=== PATIENT | female | born 1985 | race Caucasian/White ===

== ENCOUNTER → 2016-07-03 | Outpatient (CLI) | payer OTHER | LOC: FIMAGING 14:09 | PROVIDERS: ATTEND Obstetrics & Gynecology | DX: O99.281 Endocrine, nutritional and metabolic diseases complicating pregnancy, first trimester (principal); Z3A.12 12 weeks gestation of pregnancy ==

== ENCOUNTER → 2016-08-17 | Outpatient (CLI) | payer OTHER | LOC: FIMAGING 12:04 | PROVIDERS: ATTEND Obstetrics & Gynecology | DX: Z36 Encounter for antenatal screening of mother (principal); Z3A.19 19 weeks gestation of pregnancy ==

== ENCOUNTER 2016-12-26 10:16 | Inpatient (IN) | payer OTHER ==
--- NOTE | 2016-12-26 15:04 | GHP ---
[f rep st] HISTORY AND PHYSICAL DATE OF ADMISSION: 12/26/2016 ADMISSION DIAGNOSES: 1. IUP @ 38 weeks and 1/7 days. 2. Premature rupture of membranes. HISTORY OF PRESENT ILLNESS: Patient is a 31-year-old, 1, para 0, at 38 weeks and 1 day with estimated due date 01/09/2017. This is by a last menstrual period 04/04/2016, and confirmed by first-trimester ultrasound. Patient presents with complaints of positive leakage of fluid at 9 o'clock this morning. She notes it is clear, cloudy but no odor. No blood. States good movement. Denies any cramping or contractions at this time. Patient was a transfer of care to [facility] at 35 weeks from [facility]. 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 Patient did have a first trimester screen which was negative. On the ultrasound done at 20 weeks there was an estimated weight in 91st percentile. She did have a followup ultrasound at 36 weeks with an estimated weight in 72nd percentile, 3325 g with an DAISY of 20.4. Patient did develop anemia of , and is tolerating iron. She did receive Tdap during the . GBS culture is negative. PAST OBSTETRICAL HISTORY: Patient is a primip. PAST AUTOPSY PATHOLOGIST HISTORY: Menarche age 13. Cycles every 28-40 days for 5 days. She has a history of irregular menstrual cycles. LMP 04/04/2017. Patient denies history of abnormal Pap smears. Denies exposure to any sexually transmitted diseases. PAST MEDICAL HISTORY: Hypothyroid, migraines. PAST SURGICAL HISTORY: Unremarkable. CURRENT MEDICATIONS: Levothyroxine, vitamins. Iron. ALLERGIES: No known drug allergies. SOCIAL HISTORY: The patient has been in a monogamous relationship with her partner for 2 years. She stays at home. Denies any alcohol, tobacco or illicit drug use. She is a vegetarian, however, eats eggs and dairy. She is here from [place]. FAMILY HISTORY: Maternal grandfather with colon cancer. Maternal aunt with a history of PKU. LABS: AB positive. Antibody negative. RPR nonreactive. Rubella immune. Hepatitis B surface antigen negative. HIV negative. Declined Trio screen. TSH 2.0. Free T4 0.87 in the first trimester. Most recent TSH 1.07, free T4 is 0.76. Urine culture negative. Pap test negative 06/23. Gonorrhea and chlamydia cultures were negative. First trimester screen negative. H and H 11.9, 35.5. One-hour Glucola 106. GBS culture is negative and varicella is positive. REVIEW OF SYSTEMS: A 10-point ROS is negative. Pertinent positives noted in HPI. PHYSICAL EXAMINATION: VITAL SIGNS: On admission vital signs are stable. Patient is afebrile. GENERAL: Well-nourished, well-developed female, alert and oriented x3. No apparent distress. CARDIOVASCULAR: Regular rate and rhythm. LUNGS: Clear to auscultation. ABDOMEN: Soft, gravid, nontender, nondistended. EXTREMITIES: Normal to inspection without calf tenderness or edema. On pelvic exam, she is noted to be 1cm, 25% effaced, -3 station. Posterior. Grossly ruptured with a positive Amnisure. heart tones are Category 1 tracing. heart rate 130 beats per minute. Positive accelerations. No decelerations. Moderate variability. On toco she has had only 1 contraction. ASSESSMENT: The patient is a 31-year-old, 1, para 0 at 38 1/7 weeks who presents with premature rupture of membranes. 1. Admit to Labor and Delivery for expectant management. 2. If there are no contractions or cervical change noted over the next several hours, discussed placing a Lau balloon for mechanical dilation of cervix. 3. GBS negative. No prophylactic antibiotics are needed. /[id number]/MODL MTDD
--- NOTE | 2016-12-26 16:49 | OBPROG ---
OBG Labor Progress Note Assessment/Plan: Assessment: 31 y/o @ 38 1/7 wks with PROM Plan: No cervical change noted and no ctx's Lau balloon placed via speculum without difficulty and inflated with 40 cc NS FHTs - CAT I tracing Will start Pitocin in am 823 at 0200 with cont monitoring GBS negative Signed out to Dr. Avendaño who will be covering from 5pm - 7am. 12/26/16 16:57 Subjective: Pt is doing well, no ctx's noted. Good FM noted. Still leaking clear fluid. - SVE Dilation (cm): 1 Effacement (%): 50 Station: -3 [place] Current Contraction Pattern: Other (Specify) (none) FHR Pattern Variability: Moderate FHR Category: 1 Membranes: SROM Amniotic Fluid Color: Clear Oxytocin Orders Assessment - Pre-Induction/Augmentation Assessment Gestational Age: 38 week(s) and 0 day(s) ICD10 Worksheet Patient Problems: Problems Problem Status Onset Premature rupture of membranes Acute
[2016-12-26] MEDS ORDERED: LR 500 ML IV PRN (16:58)
[2016-12-26] MEDS ORDERED: EPSOM SALT 454 GM TP PRN (17:54)
[2016-12-26] MEDS ORDERED: LIDOCAINE 1% 300 MG/30 ML SDV SC PRN (17:54)
[2016-12-26] MEDS ORDERED: LR 1,000 ML IV PRN (17:54)
[2016-12-26] MEDS ORDERED: OLIVE OIL 118 ML BTL MISC PRN (17:54)
[2016-12-26] MEDS ORDERED: TERBUTALINE SULFATE 1 MG/ML VIAL IV PRN (17:54)
[2016-12-26 18:15] LABS: % IMMATURE GRANULYOCYTES 0.9 % (0.0-1.1); ABSOLUTE IMMATURE GRANULOCYTES 0.07 10^3/uL (0.00-0.10); ADD DIFF? NO; ADD MORPH? NO; ADD SCAN? NO; ATYPICAL LYMPHOCYTE FLAG 0 (0-99); FRAGMENT RBC FLAG 0 (0-99); HEMATOCRIT 38.2 % (38.0-47.0); HEMOGLOBIN 13.1 g/dL (12.6-16.3); LEFT SHIFT FLG 0 (0-99); LIPEMIA HEMOLYSIS FLAG 90 (0-99); MEAN CELL HEMOGLOBIN 31.8 pg (27.9-34.1); MEAN CELL HEMOGLOBIN CONCENTR. 34.3 g/dL (32.4-36.7); MEAN CELL VOLUME 92.7 fL (81.5-99.8); MEAN PLATELET VOLUME 9.8 fL (8.7-11.7); PLATELET CLUMPS FLAG 10 (0-99); PLATELET COUNT 194 10^3/uL (150-400); RED BLOOD CELL COUNT 4.12 10^6/uL (4.18-5.33); RED CELL DISTRIBUTION WIDTH 12.6 % (11.5-15.2)
[2016-12-26] MEDS ORDERED: LIDOCAINE 1% 300 MG/30 ML SDV ONE (20:56)
[2016-12-26] MEDS ORDERED: MISOPROSTOL 200 MCG TAB ONE (20:57)
[2016-12-26] MEDS ORDERED: OXYTOCIN 10 UNIT/ML VIAL ONE (20:57)
[2016-12-26] MEDS ORDERED: OLIVE OIL 118 ML BTL ONE (20:57)
[2016-12-26] MEDS ORDERED: AMMONIA AROMATIC 1 EACH AMP IH ONE (20:57)
[2016-12-26] MEDS ORDERED: TERBUTALINE SULFATE 1 MG/ML VIAL ONE (20:57)
[2016-12-26] MEDS ORDERED: OXYTOCIN/RINGERS LACTATE 20 UNIT/1,000 ML BAG IV ONE (20:58)
[2016-12-27] MEDS ORDERED: OXYTOCIN/RINGERS LACTATE 500 ML IV SCH (02:00)
[2016-12-27] MEDS ORDERED: fentaNYL 2MCG/ML/BUP 0.1% RTU 100 ML BAG EP ONE (08:23)
[2016-12-27] MEDS ORDERED: PHENYLEPHRINE HCL 100 MCG/ML SYR ONE (08:24)
[2016-12-27] MEDS ORDERED: fentaNYL 100 MCG/2 ML INJ ONE (08:32)
--- NOTE | 2016-12-27 08:34 | OBPROG ---
OBG Labor Progress Note Assessment/Plan: Assessment: 31 y/o @ 38 2/7 wks with PROM Plan: s/p toussaint balloon, pulled this am Pitocin at 11 mu/min, cont per protocol FHTs - Cat I tracing s/p epidural, starting to get comfortable Anticipate 12/27/16 08:31 Subjective: Pt is very uncomfortable and getting an epidural. She is not able to tolerate a cervical exam at this time. Objective: 12/26/16 17:45 Patient ABO/Rh AB POSITIVE 12/26/16 17:45 Villa Current Contraction Pattern: Regular (Q3-4 min) FHR (bpm): 150 FHR Pattern Variability: Moderate FHR Category: 1 Membranes: SROM Amniotic Fluid Color: Clear Oxytocin Orders Assessment - Pre-Induction/Augmentation Assessment Indication: PROM Presentation: Vertex Gestational Age: 38 week(s) and 0 day(s) Gestational Age Determined By: Ultrasound (confirmed by first trimester u/s), Last Menstral Period Estimated Weight: 3694-0252 Membrane Status: Ruptured Current Contraction Pattern: Regular - Heart Rate Pattern Villa FHR Baseline (bpm): 150 FHR Category: 1 FHR Pattern Variability: Moderate FHR Accelerations: Present ICD10 Worksheet Patient Problems: Problems Problem Status Onset Premature rupture of membranes Acute
[2016-12-27] MEDS ORDERED: PHENYLEPHRINE HCL 100 MCG/ML SYR IVP PRN (09:10)
[2016-12-27] MEDS ORDERED: ONDANSETRON 4 MG/2 ML VIAL IVP PRN (09:10)
--- NOTE | 2016-12-27 09:10 | PREANESOB ---
Obstetric Pre-Anesthesia Info - General Info Proposed Procedure: Labor epidural : 1 Para: 0 - Info Status: Full Term Monitors: External FHR Pattern: Reassuring - Labor Status Cervical Dilation per last OB SVE: 1 Station per last OB SVE: -3 Pitocin: In Use Magnesium Sulfate in Use: No Indications for Labor Analgesia: Pain Control Labor Epidural: Proposed Anesthesia Allergies/Adverse Reactions: Allergy/AdvReac Type Severity Reaction Status Date / Time No Known Allergies Allergy Unverified 12/26/16 10:23 Home Medications: Medication Instructions Recorded Iron 1 tab PO DAILY 12/26/16 Levothyroxine 50 mcg PO DAILY 12/26/16 1 tab PO DAILY 12/26/16 Visit Medications: Generic Name Dose Route Start Last Admin Trade Name Freq PRN Reason Stop Dose Admin Lactated Ringer's 500 mls @ 500 mls/hr 12/26/16 16:58 Lr IV PRN PRN Maternal Hypotension Oxytocin/Lactated Ringer's 500 mls @ 0 mls/hr 12/27/16 02:00 12/27/16 02:10 Pitocin 30 Units/Lr (Premix) IV 06/25/17 01:59 500 mls CONT ANABELLE Administration Protocol Per Protocol Lactated Ringer's 1,000 mls @ 0 mls/hr 12/26/16 17:54 Lr IV 06/24/17 17:53 PRN PRN SEE PROTOCOL CONDITIONS Protocol Per Protocol Ibuprofen 600 mg 12/26/16 17:54 Motrin PO 06/24/17 17:53 Q6HRS PRN post , inflammation Lidocaine HCl 300 mg 12/26/16 17:54 Lidocaine Hcl 1% SC 06/24/17 17:53 ONCE PRN episiotomy Magnesium Sulfate 454 gm 12/26/16 17:54 Epsom Salt TP 06/24/17 17:53 Q1H PRN perineal discomfort Carmel Oil 118 ml 12/26/16 17:54 Sweet Oil MISC 06/24/17 17:53 ONCE PRN preneal massage Terbutaline Sulfate 0.25 mg 12/26/16 17:54 Brethine IV 06/24/17 17:53 ONCE PRN Tachysystole Discontinued Medications Generic Name Dose Route Start Last Admin Trade Name Freq PRN Reason Stop Dose Admin Ammonia (Aromatic Spirit) Confirm 12/26/16 20:57 Ammonia Aromatic Administered 12/26/16 20:58 Dose 1 each IH .STK-MED ONE Ephedrine Sulfate Confirm 12/26/16 20:57 Ephedrine Sulfate Administered 12/26/16 20:58 Dose 50 mg .ROUTE .STK-MED ONE Fentanyl Confirm 12/27/16 08:32 Sublimaze Administered 12/27/16 08:33 Dose 100 mcg .ROUTE .STK-MED ONE Fentanyl/Bupivacaine HCl Confirm 12/27/16 08:23 Fentanyl/Bupivacaine/Ns 2 Mcg/Ml 0.1% (Premix Administered 12/27/16 08:24 Dose 100 ml EP .STK-MED ONE Lidocaine HCl Confirm 12/26/16 20:56 Lidocaine Hcl 1% Administered 12/26/16 20:57 Dose 300 mg .ROUTE .STK-MED ONE Misoprostol Confirm 12/26/16 20:57 Cytotec Administered 12/26/16 20:58 Dose 1,000 mcg .ROUTE .STK-MED ONE Carmel Oil Confirm 12/26/16 20:57 Sweet Oil Administered 12/26/16 20:58 Dose 118 ml .ROUTE .STK-MED ONE Oxytocin Confirm 12/26/16 20:57 Pitocin Administered 12/26/16 20:58 Dose 40 unit .ROUTE .STK-MED ONE Oxytocin/Lactated Ringer's Confirm 12/26/16 20:58 Pitocin 20 Units/Lr (Premix) Administered 12/26/16 20:59 Dose 20 unit IV .STK-MED ONE Phenylephrine HCl Confirm 12/27/16 08:24 Neosynephrine Administered 12/27/16 08:25 Dose 1,000 mcg .ROUTE .STK-MED ONE Terbutaline Sulfate Confirm 12/26/16 20:57 Brethine Administered 12/26/16 20:58 Dose 1 mg .ROUTE .STK-MED ONE - Anesthesia History Response to Local Anesthetics: Normal Anesthesia & Operative History: No Prior Problems Family Anesthesia History: Negative - Social History Substance Use/Abuse: Denies - Focused Exam Height/Weight (Nursing): Height 164 cm Weight 77.5 kg Respiratory: lungs clear Cardiovascular: regular rate, rhythm ASA Status: II (Plan PCEA for pain control.) Labs: 12/26/16 17:45 Patient ABO/Rh AB POSITIVE 12/26/16 17:45
[2016-12-27] MEDS ORDERED: LR 500 ML IV SCH (09:30)
[2016-12-27] MEDS ORDERED: fentaNYL 2MCG/ML/BUP 0.1% RTU 100 ML EP SCH (09:30)
[2016-12-27] MEDS ORDERED: CALCIUM CARBONATE 500 MG CHEWABLE TAB PO PRN (14:11)
--- NOTE | 2016-12-27 14:46 | OBPROG ---
OBG Labor Progress Note Assessment/Plan: Assessment: 31 y/o @ 38 2/7 wks with PROM Plan: Continue current management Pitocin at 2mu/min s/p epidural, comfortable FHTs - Cat I tracing Will have pt labor down and start pushing in 30-60 min Anticipate 12/27/16 14:44 Subjective: Pt is comfortable, feels no pressure or urge to push. Objective: 12/26/16 17:45 Patient ABO/Rh AB POSITIVE 12/26/16 17:45 - SVE Dilation (cm): 10 Effacement (%): 100 Station: +1 Dilation Complete Date: 12/27/16 Dilation Complete Time: 14:10 [place] Current Contraction Pattern: Regular FHR (bpm): 140 FHR Pattern Variability: Moderate FHR Category: 1 Membranes: SROM Amniotic Fluid Color: Clear - Physical Exam Estimated Weight: [id number] Oxytocin Orders Assessment - Pre-Induction/Augmentation Assessment Presentation: Vertex Gestational Age: 38 week(s) and 0 day(s) Estimated Weight: 9658-8608 ICD10 Worksheet Patient Problems: Problems Problem Status Onset Premature rupture of membranes Acute
[2016-12-27] MEDS ORDERED: SIMETHICONE 80 MG TAB CHEW PO PRN (17:13)
[2016-12-27] MEDS ORDERED: IBUPROFEN 600 MG TAB PO PRN (17:13)
[2016-12-27] MEDS ORDERED: HYDROCODONE/APAP 5/325 TAB PO PRN (17:13)
[2016-12-27] MEDS ORDERED: HYDROCORTISONE 0.5% CREAM TP PRN (17:13)
[2016-12-27] MEDS: IBUPROFEN 600 MG TAB PO PRN (17:16)
--- NOTE | 2016-12-27 17:18 | OBDEL ---
Info Type: Vaginal GBS+: No Indications for Delivery: SROM (PROM) Vaginal Delivery - Labor and Delivery Onset of Contractions Date: 12/27/16 Onset of Contractions Time: 07:00 Onset of Contractions Type: Induced Rupture of Membranes Date: 12/26/16 Rupture of Membranes Time: 09:30 Rupture of Membranes Type: Spontaneous Amniotic Fluid Color: Clear Dilation Complete Date: 12/27/16 Dilation Complete Time: 14:10 Placenta Delivery Date: 12/27/16 Placenta Delivery Time: 16:55 Total Hours of Labor: 9 Laceration: Other (Specify) (Midline vaginal lac) Repair: 3-0, Vicryl Vaginal Sponge Count Correct: Yes Vaginal Needle Count Correct: Yes Vaginal Sweep Performed: Yes EBL: 300 cc Delivery Events: Nuchal Cord (loose x 1 - slipped on perineum) - Medications Labor Augmentation/Induction Methods Used: Pitocin, Lau Bulb Labor Augmentation/Induction Indication: Other (Specify) (PROM) Data [place] Delivery Date: 12/27/16 Delivery Time: 16:41 RUDDY: 01/09/17 Gestational Age: 38 week(s) and 1 day(s) Sex of : Female ("Yaneth Richards") Score (1 Min): 8 Score (5 Min): 9 ICD10 Worksheet Patient Problems: Problems Problem Status Onset Premature rupture of membranes Acute (spontaneous vaginal delivery) Acute - ICD10 Problem Qualifiers (1) (spontaneous vaginal delivery)
[2016-12-28] MEDS: IBUPROFEN 600 MG TAB PO PRN ×4 (00:09→17:52)
[2016-12-28] MEDS: LEVOTHYROXINE 50 MCG TAB PO SCH (06:17)
[2016-12-28] MEDS: DOCUSATE SODIUM 100 MG CAP PO PRN ×2 (07:25→17:52)
--- NOTE | 2016-12-28 07:31 | OBPP ---
Progress Note Assessment/Plan: Assessment: PPD 1 s/p Plan: routine care 12/28/16 07:25 Subjective: Pt doing well. bottom is sore and burning with urination. swollen. urinating ok. working on BF and having some difficulty. Tired. Objective: 12/26/16 17:45 Patient ABO/Rh AB POSITIVE 12/26/16 17:45 Uterine Position/Fundal Height: Umbilicus -1 Uterine Tone: Firm Physical Exam - Physical Exam General Appearance: WD/WN, alert Abdomen: non-tender, soft Extremities: non-tender, pedal edema (minimal) Neuro/Psych: normal mood/affect
[2016-12-28 08:09] VITALS: RESP 16
[2016-12-28] MEDS ORDERED: LEVOTHYROXINE 50 MCG PO SCH (09:00)
[2016-12-29] MEDS: DOCUSATE SODIUM 100 MG CAP PO PRN (00:50)
[2016-12-29] MEDS: IBUPROFEN 600 MG TAB PO PRN (00:50)
[2016-12-29] MEDS: LEVOTHYROXINE 50 MCG TAB PO SCH (05:54)
--- NOTE | 2016-12-29 07:54 | OBPP ---
Progress Note Assessment/Plan: Assessment: s/p PPD # 2 - pt is stable Plan: Plan for d/c home today Instructions reviewed with pt Rx given for Levo Cont PNV Pelvic rest RTC in 4 and 6 weeks for pp visit 12/29/16 07:45 Subjective: Pt seen and examined. Doing well with complaints. Mild cramping, relief with Motrin. Moderate lochia. Pt is OOB, roman regular diet, voiding without difficulty , passing flatus. No BM yet. BF with some difficulty-sore nipples. Objective: 12/26/16 17:45 Patient ABO/Rh AB POSITIVE 12/26/16 17:45 Temp Pulse Resp BP Pulse Ox 36.6 C 92 16 103/74 98 12/28/16 21:50 12/28/16 21:50 12/28/16 21:50 12/28/16 21:50 12/28/16 21:50 Uterine Position/Fundal Height: Umbilicus -2 Uterine Tone: Firm Physical Exam - Physical Exam General Appearance: WD/WN, alert, no apparent distress Respiratory: lungs clear, normal breath sounds Cardiac/Chest: regular rate, rhythm Abdomen: normal bowel sounds, non-tender, soft, flatus (+) Extremities: non-tender, normal inspection Skin: normal color, warm/dry Neuro/Psych: alert, normal mood/affect, oriented x 3
--- NOTE | 2016-12-29 07:57 | OBGCSDC ---
General Delivery Information - General Info : 1 Para: 1 Delivery Physician/CNM: Maggie Daniels Admission Date: 12/26/16 Labs: Patient ABO/Rh AB POSITIVE 12/26/16 17:45 Hct 38.2 % (38.0-47.0) 12/26/16 17:45 Vaginal - Diagnosis Labor: Induced Rupture of Membranes Type: Spontaneous Amniotic Fluid Color: Clear Laceration: Other (Specify) (Midline vaginal lac) Repair: 3-0, Vicryl Delivery Events: Nuchal Cord (loose x 1 - slipped on perineum) - Operations/Procedures L&D Analgesia/Anesthesia Type: Epidural - Hospital Course Antepartum: Transfer of care at 35 weeks. Hypothyroidism-stable on meds Intrapartum: PROM-clear. IOL with toussaint balloon and they Pitocin. Progressed and had uncomplicated . GBs neg. EBL 300 cc. : Uncomplicated. Mild cramping. Mod lochia. BF with some difficulty-sore nipples. Voiding without difficulty. No BM. - Delivery L&D Analgesia/Anesthesia Type: Epidural Data [place] Delivery Date: 12/27/16 Delivery Time: 16:49 RUDDY: 01/09/17 Gestational Age: 38 week(s) and 3 day(s) Sex of : Female Weight (gm): 3088 g Score (1 Min): 8 Score (5 Min): 9 Discharge Information - Discharge Information Discharge Medications: Ibuprofen, Vitamins, Other (Specify) (Levo) Condition: Good Instruction/Follow Up: Four Weeks, Six Weeks Discharge Physician/CNM: Maggie Daniels
[2016-12-29 10:05] VITALS: BP 111/73; PULSE 98; TEMP 98.6; O2SAT 96
== END 2016-12-29 12:35 | disposition home or self-care (01) | DRG 775 ==
LOC: FLD 10:16 → FOB 12-28 18:21
PROVIDERS: ADMIT Obstetrics & Gynecology; ATTEND Obstetrics & Gynecology
PROC: 0U7C7ZZ Dilation of Cervix, Via Natural or Artificial Opening (ICD-10-PCS; 2016-12-26)
PROC: 3E033VJ Introduction of Other Hormone into Peripheral Vein, Percutaneous Approach (ICD-10-PCS; 2016-12-26)
PROC: 10E0XZZ Delivery of Products of Conception, External Approach (ICD-10-PCS; principal; 2016-12-27)
DX: O42.02 Full-term premature rupture of membranes, onset of labor within 24 hours of rupture (principal); O99.281 Endocrine, nutritional and metabolic diseases complicating pregnancy, first trimester; Z37.0 Single live birth; E03.9 Hypothyroidism, unspecified; O69.82X0 Labor and delivery complicated by other cord entanglement, without compression, not applicable or unspecified; Z3A.36 36 weeks gestation of pregnancy
CPT/HCPCS: J2370; J2590; J3010; J3105